=== PATIENT | male | born 1965 | race Caucasian/White ===

== ENCOUNTER 2018-06-01 09:41 | Emergency (ER) | payer BC ==
[2018-06-01 10:25] VITALS: BP 121/78
--- NOTE | 2018-06-01 12:10 | RAD ---
Indication: Left knee pain. 4 views of left knee demonstrates no evidence of fracture. Joint space narrowing in the medial compartment is noted. No significant joint effusion is noted. IMPRESSION: Joint space narrowing medial compartment left knee.
--- NOTE | 2018-06-01 12:14 | UC ---
Knee Pain HPI - HPI Summary HPI Summary: Pt c/o intermittent left knee pain X 4 weeks ago. Pt denies injury, trauma or previous surgery. - History of Current Complaint Chief Complaint: UCLowerExtremity Stated Complaint: LT KNEE COMP Time Seen by Provider: 06/01/18 11:36 Hx Obtained From: Patient Onset/Duration: Gradual Onset, Lasting Weeks - 4 weeks, Still Present Severity Initially: Moderate Severity Currently: Mild Pain Intensity: 5 Character: Sharp, Dull, Aching Aggravating Factor(s): Movement Alleviating Factor(s): Rest, Position Associated Signs And Symptoms: Positive: Negative Able to Bear Weight: Yes - Risk Factors Septic Arthritis Risk Factor: Negative Gout Risk Factor: Male - Allergies/Home Medications Allergies/Adverse Reactions: Allergies Allergy/AdvReac Type Severity Reaction Status Date / Time No Known Allergies Allergy Verified 01/13/15 17:24 Home Medications: Home Medications NK [No Home Medications Reported] 06/01/18 [History Confirmed 06/01/18] PMH/Surg Hx/FS Hx/Imm Hx Previously Healthy: Yes - Surgical History Surgical History: Yes Surgery Procedure, Year, and Place: jaw surgery. LEFT KNEE CYST REMOVAL - Family History Known Family History: Positive: Cardiac Disease - Social History Occupation: Employed Full-time Lives: With Family Alcohol Use: Daily Alcohol Amount: 2-3 beers nightly Substance Use Type: None Smoking Status (MU): Heavy Every Day Tobacco Smoker Type: Cigars Amount Used/How Often: 1/2 pack daily Have You Smoked in the Last Year: Yes Review of Systems Constitutional: Negative Skin: Negative Eyes: Negative ENT: Negative Respiratory: Negative Cardiovascular: Negative Gastrointestinal: Negative Genitourinary: Negative Motor: Negative Musculoskeletal: Arthralgia - left knee, Myalgia - left knee Neurological: Negative Psychological: Negative Is Patient Immunocompromised?: No All Other Systems Reviewed And Are Negative: Yes Physical Exam Triage Information Reviewed: Yes Appearance: Well-Appearing Vital Signs: Initial Vital Signs Temp 98.4 F 06/01/18 10:17 Pulse 58 06/01/18 10:17 Resp 17 06/01/18 10:17 BP 121/78 06/01/18 10:17 Pulse Ox 97 06/01/18 10:17 Vital Signs Reviewed: Yes Eye Exam: Normal ENT Exam: Normal Dental Exam: Normal Neck exam: Normal Respiratory: Positive: No respiratory distress Musculoskeletal Exam: Other - c/o intermittent pain Musculoskeletal: Positive: Other: - surgical scar left medial knee from previous cyst removal over 20 years ago. Neurological Exam: Normal Psychological Exam: Normal Skin Exam: Other - surgical scar, left medial knee Diagnostics - Radiology No standard instances Radiology Interpretation Completed By: Radiologist - IMPRESSION: Joint space narrowing medial compartment left knee. Knee Pain Course/Dx - Differential Dx/Diagnosis Differential Diagnosis/HQI/PQRI: Tendonitis Provider Diagnoses: left knee pain Discharge - Sign-Out/Discharge Documenting (check all that apply): Patient Departure - Discharge Plan Condition: Stable Disposition: HOME Patient Education Materials: Knee Pain (ED) Referrals: Vikram Hobbs MD [Medical Doctor] - As Soon As Possible No Primary Care Phys,NOPCP [Primary Care Provider] - - Billing Disposition and Condition Condition: STABLE Disposition: Home
== END 2018-06-01 12:48 | disposition home or self-care (01) ==
LOC: UCCORT 09:41
DX: M25.562 Pain in left knee (principal); F17.210 Nicotine dependence, cigarettes, uncomplicated
CPT/HCPCS: 99201; G0463

== ENCOUNTER 2018-12-05 08:42 | Observation (INO) | payer BC ==
--- NOTE | 2018-11-27 12:21 | HP ---
HISTORY AND PHYSICAL: DATE OF ADMISSION/SURGERY: 12/05/18 DATE OF OFFICE VISIT: 11/26/18 SURGEON: Yessica Sue MD * (DICTATED BY MIRYAM CASTANO) PROCEDURE: Left total knee arthroplasty. CHIEF COMPLAINT: Left knee pain. HISTORY OF PRESENT ILLNESS: Mr. Finnegan is a 53-year-old gentleman with end- stage osteoarthritis of the left knee. He has failed conservative treatment and elected to proceed with a left total knee arthroplasty. PAST MEDICAL HISTORY: Denies. PAST SURGICAL HISTORY: Jaw surgery and a cyst removal from his left knee. CURRENT MEDICATIONS: Tylenol as needed. ALLERGIES: No known drug allergies. FAMILY HISTORY: [place] chorea. SOCIAL HISTORY: He is a 53-year-old gentleman, lives with his . He smokes a pack a day, denies use of drugs and drinks approximately 6 beers per night. REVIEW OF SYSTEMS: A complete 14-point review of systems was reviewed with the patient. It was all negative or noncontributory. He denies history of DVT, PE , hepatitis, HIV, or anesthesia problems. PHYSICAL EXAMINATION GENERAL: He is well developed, well nourished, in no acute distress. VITAL SIGNS: He stands 65 inches tall, weighs 155 pounds. His blood pressure is 120/81 and his heart rate is 72. HEENT: Normocephalic, atraumatic. NECK: Supple. No palpable lymph nodes. PULMONARY: The lungs are clear to auscultation bilaterally. CARDIO: Regular rate and rhythm. Strong S1, S2. ABDOMEN: Soft, nontender, nondistended. NEUROLOGICAL: He is alert and oriented x3. MUSCULOSKELETAL: Left lower extremity: The skin is intact. There are no open wounds or abrasions. He has a moderate effusion of the left knee, some tenderness along the medial joint line. There is a varus deformity of the knee with 10 to 120 degrees of flexion. He has a 2+ dorsalis pedis pulse, intact sensation in his lower extremity, muscle group strengths are intact at 5/5. ASSESSMENT AND PLAN: Mr. Finnegan is a 53-year-old gentleman with end-stage osteoarthritis of the left knee. He has failed conservative treatment and elected to proceed with a left total knee arthroplasty. The surgery is scheduled for 12/05/[address] Sue discussed the risks and benefits of the surgery at today's visit and all of his questions were answered. He will follow up with Dr. Sue 2 weeks after the surgery. MIRYAM CASTANO [id number]/[facility] #: [id number] JENARO
[~2018-12-05 08:42] MED LIST: Buffered Lidocaine 1% SYRIN* 1 ML/SYRINGE INTRADERM ONE; Dexamethasone IV* 4 MG/ML 1 ML (4 MG) IV SLOW PU ONE; Dexamethasone IV* 4 MG/ML 1 ML (4 MG) ONE; Famotidine IV* 10 MG/ML 2 ML (20 mg) IV ONE; Famotidine IV* 10 MG/ML 2 ML (20 mg) ONE; Gabapentin CAP(*) 100 MG ONE; Gabapentin CAP(*) 300 MG ONE; Gabapentin CAP(*) 300 MG PO ONE; Lactated Ringers 1000 ML Bag* 1,000 ML IV SCH; Lidocaine 2% PF * 5 ML VIAL ONE; Midazolam* 1 MG/ML 2 ML VIAL (2 MG) ONE; ROPIVACAINE 5 MG/ML 30 ML BTL (0.5%) ONE; Tranexamic Acid 1,000 MG in NS 0.9% 50 ML IV ONE; ceFAZolin 2 GM PREMIX in ORs 2 GM/50 ML BAG IVPB ONE; celeCOXIB CAP* 200 MG PO ONE; fentaNYL* 50 MCG/ML 2 ML VIAL (100 MCG VIAL) ONE
[2018-12-05] MEDS ORDERED: celeCOXIB CAP* 100 MG ONE (08:47)
[2018-12-05] MEDS ORDERED: Bupivacaine 0.5%* 50 ML VIAL ONE (08:54)
[2018-12-05] MEDS ORDERED: Propofol* 10 MG/ML 20 ML BTL ONE (09:33)
[2018-12-05] MEDS ORDERED: Ketorolac INJ* 30 MG/ML 1 ML VIAL ONE (10:17)
[2018-12-05] MEDS ORDERED: Ondansetron INJ* 2 MG/ML VIAL ONE (10:17)
[2018-12-05] MEDS ORDERED: HYDROmorphone INJ1* 1 MG/ML SYRINGE ONE (10:19)
[2018-12-05] MEDS ORDERED: DiMENhydriNATE IV* 50 MG/ML VIAL IV PUSH PRN (10:23)
[2018-12-05] MEDS ORDERED: HYDROmorphone INJ1* 1 MG/ML SYRINGE IV PRN (10:23)
[2018-12-05] MEDS ORDERED: Naloxone* 0.4 MG/ML 1 ML VIAL IV PRN (10:23)
[2018-12-05] MEDS ORDERED: fentaNYL* 50 MCG/ML 2 ML VIAL (100 MCG VIAL) IV PRN (10:23)
[2018-12-05] MEDS ORDERED: fentaNYL* 50 MCG/ML 2 ML VIAL (100 MCG VIAL) ONE ×2 (11:47→12:35)
[2018-12-05] MEDS ORDERED: Bisacodyl SUPP* 10 MG SUPP PR PRN (11:52)
[2018-12-05] MEDS ORDERED: Ondansetron INJ* 2 MG/ML VIAL IV PRN (11:52)
[2018-12-05] MEDS ORDERED: Polyethylene Glycol 3350* 17 GM PACKET PO PRN (11:52)
[2018-12-05] MEDS ORDERED: Cyclobenzaprine TAB* 10 MG PO PRN (11:52)
[2018-12-05] MEDS ORDERED: Magnesium Hydroxide LIQ* 30 ML UDC PO PRN (11:52)
[2018-12-05] MEDS ORDERED: Ondansetron TAB* 4 MG PO PRN (11:52)
[2018-12-05] MEDS ORDERED: diPHENhydraMINE IV* 50 MG/ML 1 ml VIAL (BENADRYL) IV PRN (11:52)
[2018-12-05] MEDS ORDERED: Acetaminophen TAB* 325 MG PO SCH (12:00)
[2018-12-05] MEDS ORDERED: oxyCODONE/Acetamin 5/325 MG* TAB ONE (12:35)
[2018-12-05] MEDS: oxyCODONE/Acetamin 5/325 MG* TAB PO PRN ×3 (12:37→22:44)
[2018-12-05] MEDS: Lactated Ringers 1000 ML Bag* 1,000 ML IV SCH (13:58)
[2018-12-05] MEDS ORDERED: Mouth Piece, Nicotine* 1 EACH CARTRIDGE INH PRN (14:38)
[2018-12-05] MEDS: Acetaminophen TAB* 325 MG PO SCH ×2 (14:55→22:48)
[2018-12-05] MEDS: traMADol TAB* 50 MG PO PRN (15:13)
[2018-12-05] MEDS: Nicotine Inhaler* 10 MG AMP INH PRN ×2 (15:13→17:13)
[2018-12-05] MEDS: ceFAZolin 1 GM ADVAN(*) 1 GM in NS 0.9% 50 ML* 50 ML IVPB SCH (19:00)
--- NOTE | 2018-12-05 20:14 | OP ---
DATE OF OPERATION: 12/05/18 - ROOM #332 DATE OF : 65 SURGEON: Yessica Sue MD. CONTINUOUS IMPROVEMENT BLACK BELT: MIRYAM Morris. Ms. Crum did help throughout the procedure with preparation of the leg, wound retraction, manipulation of the knee, and wound closure. ANESTHESIOLOGIST: Dr. Garcia. ANESTHESIA: Spinal. PRE-OP DIAGNOSIS: Severe end-stage degenerative osteoarthritis of the left knee joint. POST-OP DIAGNOSIS: Severe end-stage degenerative osteoarthritis of the left knee joint. OPERATIVE PROCEDURE: Left total knee arthroplasty. COMPLICATIONS: None. SPECIMENS: Bone and cartilage from the left knee joint sent to Pathology. ESTIMATED BLOOD LOSS: 150 cc. TOURNIQUET TIME: 49 minutes. HARDWARE USED: This is a cemented Menendez [employer] Nephew total knee arthroplasty hardware. Two packages of Simplex bone cement were used. For the femur, a left size 7 posterior stabilized Oxinium Legion femoral component. For the tibia, a size 5 left tibial baseplate Cherry II. For the insert, a 9 mm posterior stabilized articular insert size 5/6 and for the patella, a 32 mm 3- peg all poly patella with 7.5 thickness. BRIEF HISTORY/INDICATIONS: Mr. Finnegan is a 53-year-old gentleman with years of increasingly severe left knee pain. He failed conservative treatment with anti- inflammatories, pain medications, intraarticular injections, and physical therapy. Due to continued pain and decreased quality of life, he elected to undergo a left total knee arthroplasty. Radiographs showed advanced arthritis. Informed consent was obtained from the patient. He understood the risks of the surgery included but were not limited to bleeding, infection, damage to nearby structures, continued pain, need for further surgery, intraoperative fracture, nerve palsy, hardware failure or loosening, knee stiffness, loss of motion, stroke, heart attack, blood clot, and . He wished to proceed. INTRAOPERATIVE FINDINGS: Intraoperatively, the patient was noted to have full- thickness loss of cartilage in all 3 compartments. He was noted to have significant varus deformity at the knee joint. DESCRIPTION OF PROCEDURE: Mr. Finnegan was identified in the preanesthesia unit. His left lower extremity was marked as the correct operative site. Informed consent was signed and placed in the chart. The patient was taken to the operating room and placed under spinal anesthesia. A Funk catheter was placed. Tourniquet was placed on the left thigh. Left lower extremity was prepped and draped in the usual sterile fashion. Preop time-out was made to correctly identify the patient's side and site. Appropriate perioperative antibiotics were given within 1 hour of incision. Tourniquet was inflated and total tourniquet time for this procedure was 49 minutes. A midline incision was made with a 10 blade and carried down to the extensor mechanism. New 10 blade was used to make a standard medial parapatellar arthrotomy. Patella was subluxed laterally. Electrocautery was used to subperiosteally elevate soft tissue off the supero-medial tibia to the midsagittal plane. The knee was flexed up. The anterior horn of the lateral meniscus and the ACL were sharply released. A drill was used to enter the distal femur. Intramedullary distal femoral cutting guide was pinned on the distal femur. Oscillating saw was used to make the distal femoral cut. Next, the external rotation guide was pinned on the distal femur. Distal femur was sized to a size 7. Size 7 multi-cutting jig was pinned on the distal femur. Oscillating saw was used to make the appropriate 4 chamfer cuts. Next, the PCL was completely released. The tibia was subluxed anteriorly. Extramedullary tibial cutting guide was pinned on the proximal tibia. Oscillating saw was used to make the proximal tibial cut perpendicular to the mechanical axis of the tibia. The bone was carefully removed. The knee was brought out into full extension. The spacer block had good fit with the knee in full extension. Medial and lateral ligaments were well balanced. Flexion and extension gaps were well balanced. The knee was flexed up. Lamina cell phone repair technician was placed both medially and laterally and the remaining meniscus was carefully removed using electrocautery. Curved osteotome was used to remove any posterior osteophytes. Tibial tray and drop brianna were placed and confirmed a satisfactory tibial cut. A left size 7 femoral trial was impacted on to the distal femur and had good fit and stability. The box for the posterior stabilized implant was prepared using a reamer and box cut osteotome. Size 5 tibial tray with a 9 mm insert trial was placed and the knee was taken through a range of motion. The knee had full extension to 130 degrees of flexion. There was satisfactory patellofemoral tracking. The patella was everted, 8 mm of patellar bone and cartilage was carefully removed using an oscillating saw. Patella was sized to a size 32. Three peg holes were drilled using the size 32 guide. The 32 trial patella with 7.5 thickness was placed and the knee was taken through a range of motion. There was satisfactory patellofemoral tracking. All trials were carefully removed. The tibia was subluxed anteriorly and sized to a size 5. Proximal tibia was prepared using a size 5 keel punch. All bony cut surfaces were copiously irrigated with sterile saline and dried. Final implants were cemented into place starting with the tibia, followed by the femur , and last the patella. A 9 mm insert trial was placed and the knee was brought out into full extension. Tourniquet was turned down at 49 minutes. The knee was copiously irrigated with sterile saline. Electrocautery was used to obtain meticulous hemostasis. Once the cement had fully cured, the insert trial was removed. Any extra cement was removed from around the capsule and hardware. Final insert chosen was a 9 mm posterior stabilized articular insert size 5/6. This was locked into position on the tibial tray. Stability of the insert was checked and rechecked and noted to be stable. The extensor mechanism was closed using interrupted #1 Vicryls. The rest of the incision was closed in a layered fashion using 0 and 2-0 Vicryls. Skin was closed using running 3-0 nylon suture. Sterile Xeroform, 4x4s, and Webril were used to cover the incision. Leon wrap and cold pack were placed over this. The patient 's anesthesia was reversed without difficulty. He was taken to the PACU in stable condition. Intended weightbearing will be weightbearing as tolerated. Intended DVT prophylaxis will be Coumadin with Lovenox bridge. [id number]/[facility] #: [id number] JENARO
[2018-12-05] MEDS: Magnesium Hydroxide LIQ* 30 ML UDC PO SCH (21:33)
[2018-12-05] MEDS: Docusate CAP* 100 MG PO SCH (21:33)
[2018-12-06] MEDS: Lactated Ringers 1000 ML Bag* 1,000 ML IV SCH (00:24)
[2018-12-06] MEDS: ceFAZolin 1 GM ADVAN(*) 1 GM in NS 0.9% 50 ML* 50 ML IVPB SCH ×2 (01:37→10:03)
[2018-12-06] MEDS: oxyCODONE/Acetamin 5/325 MG* TAB PO PRN ×4 (06:03→19:50)
[2018-12-06] MEDS: Acetaminophen TAB* 325 MG PO SCH ×3 (06:22→22:10)
[2018-12-06 07:03] LABS: Hematocrit 39 % (42-52); Hemoglobin 13.4 g/dl (14.0-18.0); Mean Platelet Volume 8.7 fL (7.4-10.4); Platelet Count 174 10^3/ul (150-450)
[2018-12-06 07:18] LABS: BUN/Creatinine Ratio 13.8 (8-20); Calcium 8.9 mg/dL (8.6-10.3); EGFR Non-African American 91.8 (>60)
[2018-12-06] MEDS: Nicotine Inhaler* 10 MG AMP INH PRN ×2 (07:21→15:57)
[2018-12-06] MEDS: traMADol TAB* 50 MG PO PRN ×2 (07:23→14:17)
[2018-12-06] MEDS: Magnesium Hydroxide LIQ* 30 ML UDC PO SCH ×2 (08:12→19:51)
[2018-12-06] MEDS: oxyCODONE TAB* 5 MG TAB PO PRN ×4 (08:12→21:55)
[2018-12-06] MEDS: Docusate CAP* 100 MG PO SCH ×2 (08:12→19:51)
[2018-12-06] MEDS: Apixaban* 2.5 MG TAB PO SCH ×2 (08:13→19:51)
[2018-12-06] MEDS: Morphine VIAL* 4 MG/ML VIAL (1 ml vial) IV PRN ×2 (08:38→15:10)
--- NOTE | 2018-12-06 15:25 | PN ---
Progress Note - Progress Note Date of Service: 12/06/18 SOAP: Subjective: []Patient was seen and examined at bedside. He feels well aside from operative site pain which he has required IV morphine to control. Denies CP, SOB, dizziness, nausea Objective: []General: Well appearing, NAD LLE: Dressing CDI, cryo unit in use, thigh is soft, DF/PF intact, DP2+, sensation intact to light touch distally Calves supple and nontender without erythema, edema or palpable cords Assessment: []POD 1 sp left total knee arthroplasty 12/05 Dr Sue Plan: []WBAT PT/OT lovenox bridge to coumadin, coumadin 8 mg today Anticipate DC in the morning to home, anticipate [place] [facility] [place] Vital Signs Temp 98.5 F 12/06/18 11:15 Pulse 52 12/06/18 11:15 Resp 18 12/06/18 15:16 BP 130/75 12/06/18 11:15 Pulse Ox 96 12/06/18 11:15 Intake & Output 12/05/18 12/06/18 12/06/18 18:59 06:59 18:59 Intake Total 1000 2190 1049 Output Total 4850 600 Balance 1000 -2660 449 Weight 154 lb 6.299 oz Intake: IV Fluids 1000 990 574 LR 1000 990 574 IVPB 50 55 ABX - CEFAZOLIN 50 55 Oral 1150 420 Output: Urine 600 Funk 4850 Other: Estimated Void Large # Bowel Movements 0 # Voids 1 Laboratory Last Values Hgb 13.4 g/dl (14.0-18.0) L 12/06/18 06:49 Hct 39 % (42-52) L 12/06/18 06:49 Plt Count 174 10^3/ul (150-450) 12/06/18 06:49 MPV 8.7 fL (7.4-10.4) 12/06/18 06:49 Sodium 137 mmol/L (135-145) 12/06/18 06:49 Potassium 4.0 mmol/L (3.5-5.0) 12/06/18 06:49 Chloride 106 mmol/L (101-111) 12/06/18 06:49 Carbon Dioxide 26 mmol/L (22-32) 12/06/18 06:49 Anion Gap 5 mmol/L (2-11) 12/06/18 06:49 BUN 12 mg/dL (6-24) 12/06/18 06:49 Creatinine 0.87 mg/dL (0.67-1.17) 12/06/18 06:49 Est GFR ( Amer) 111.1 (>60) 12/06/18 06:49 Est GFR (Non-Af Amer) 91.8 (>60) 12/06/18 06:49 BUN/Creatinine Ratio 13.8 (8-20) 12/06/18 06:49 Glucose 154 mg/dL (70-100) H 12/06/18 06:49 Calcium 8.9 mg/dL (8.6-10.3) 12/06/18 06:49
[2018-12-07] MEDS: oxyCODONE/Acetamin 5/325 MG* TAB PO PRN ×4 (00:02→12:22)
[2018-12-07] MEDS: oxyCODONE TAB* 5 MG TAB PO PRN ×2 (02:05→06:02)
[2018-12-07] MEDS: Acetaminophen TAB* 325 MG PO SCH (06:07)
[2018-12-07 06:11] LABS: Hematocrit 41 % (42-52); Hemoglobin 13.9 g/dl (14.0-18.0); Mean Platelet Volume 8.4 fL (7.4-10.4); Platelet Count 187 10^3/ul (150-450)
[2018-12-07] MEDS: Docusate CAP* 100 MG PO SCH (07:57)
[2018-12-07] MEDS: Apixaban* 2.5 MG TAB PO SCH (07:57)
[2018-12-07] MEDS: Magnesium Hydroxide LIQ* 30 ML UDC PO SCH (07:57)
[2018-12-07] MEDS: Nicotine Inhaler* 10 MG AMP INH PRN (09:26)
[2018-12-07] MEDS: traMADol TAB* 50 MG PO PRN (10:16)
--- NOTE | 2018-12-07 10:56 | PN ---
Progress Note - Progress Note Date of Service: 12/07/18 SOAP: Subjective: []Patient seen at bedside this am. Doing better, pain better managed with Percocet. Feels he will be able to go home this afternoon. Denies SOB, CP, palpitations,dizziness. Objective: [] Vital Signs Temp 98.4 F 12/07/18 08:07 Pulse 77 12/07/18 08:07 Resp 20 12/07/18 10:16 BP 130/81 12/07/18 08:07 Pulse Ox 94 12/07/18 08:07 Intake & Output 12/06/18 12/07/18 12/07/18 18:59 06:59 18:59 Intake Total 1399 850 100 Output Total 1775 2175 550 Balance -376 -1325 -450 Intake: IV Fluids 574 LR 574 IVPB 55 ABX - CEFAZOLIN 55 Oral 770 850 100 Output: Urine 1775 2175 550 Other: Estimated Void Large # Bowel Movements 0 # Voids 1 Laboratory Results - last 24 hr 12/07/18 05:57 Hgb 13.9 L Hct 41 L Plt Count 187 MPV 8.4 Left knee dressings changed- incision benign calf NT and soft +DF/PF left ankle sensation and circulation intact distally Assessment: []s/p LTK POD #2 Plan: []PT/ OT today WBAT LLE Eliquis for 1 month post op for DVT prophylaxis Percocet for pain f/u 10-14 days as scheduled with Dr. Sue
[2018-12-07 13:08] VITALS: BP 139/87
--- NOTE | 2018-12-07 21:17 | DS ---
DISCHARGE SUMMARY: DATE OF ADMISSION: 12/05/18 DATE OF DISCHARGE: 12/07/18 ATTENDING PHYSICIAN: Dr. Yessica Sue.* (DICTATED BY MIRYAM MCLEAN) ADMISSION DIAGNOSIS: Severe end-stage degenerative osteoarthritis of the left knee joint. DISCHARGE DIAGNOSIS: Severe end-stage degenerative osteoarthritis of the left knee joint. SURGERY PERFORMED: Left total knee arthroplasty. HOSPITAL COURSE: The patient is a 53-year-old male with years of increasingly severe left knee pain. He failed conservative management with anti- inflammatories, pain medications, intra-articular corticosteroid injections and physical therapy. Due to continued pain and decreased quality of life, he elected to proceed with left total knee arthroplasty. He was taken to the operating room under the care of Dr. Yessica Sue on the date of 12/05/18. He tolerated the procedure well and left the operating room in stable condition. Postoperatively, he progressed well with physical therapy and occupational therapy, bearing weight as tolerated on the left lower extremity. He had no medical or orthopedic postoperative complications and was found to be stable for discharge to home on the date of 12/07/18. CONDITION ON DISCHARGE: Temperature is 98.4, pulse 77, respiratory rate 16, O2 sat is 94% on room air, blood pressure 130/81. His left knee incision was healing without evidence of infection. There is no drainage. His calf is soft and nontender. His neurovascular status is intact with active dorsiflexion of the left ankle. PLAN: Discharge to home, bearing weight as tolerated on the left lower extremity. He was provided with a prescription of Percocet 5/325, 1 to 2 tablets q.4 hours p.r.n. pain, #56, MDD 8; Eliquis 2.5 mg p.o. b.i.d. for 1 month postoperatively for DVT prophylaxis. Both medications were sent to [facility] for pickup prior to discharge today. He will follow up in the office as scheduled with Dr. Sue in roughly 10 to 14 days. MIRYAM MCLEAN [id number]/[facility] #: [id number] [facility]
== END 2018-12-07 14:08 | disposition home or self-care (01) ==
LOC: OR 08:42 → SSU 14:07 → INTOOBSV 14:07
PROVIDERS: ADMIT Orthopaedic Surgery Adult Reconstructive Orthopaedic Surgery; ATTEND Orthopaedic Surgery Adult Reconstructive Orthopaedic Surgery
DX: M17.12 Unilateral primary osteoarthritis, left knee (principal)
CPT/HCPCS: 36415; 80048; 85014; 85018; 85049; 96374; 96375; 96376; A9270-GY; G0378; J0690; J1100; J1170; J1885; J2250; J2270; J2405; J2704; J2795; J3010

== ENCOUNTER 2019-05-21 08:17 | Emergency (ER) | payer BC ==
[2019-05-21 09:30] VITALS: BP 118/78
--- NOTE | 2019-05-21 10:34 | UC ---
Upper Extremity HPI - HPI Summary HPI Summary: left arm weakness x 2 months no known injury , getting worse noted that he is having a hard time with lift things with his left arm , does have left arm pain with certain movements denies any neck pain , no numbness of his arm , - History of Current Complaint Chief Complaint: UCUpperExtremity Stated Complaint: LT SIDE PAIN Time Seen by Provider: 05/21/19 08:35 Hx Obtained From: Patient Onset/Duration: Gradual Onset, Lasting Weeks - 8, Still Present Severity Initially: Mild Severity Currently: Moderate Pain Intensity: 0 Pain Scale Used: 0-10 Numeric Location Of Pain: Is Discrete @ - left arm Aggravating Factor(s): Movement, Lifting, Flexion Alleviating Factor(s): Nothing Associated Signs And Symptoms: Positive: Weakness. Negative: Swelling, Redness , Bruising, Fever, Numbness/Tingling - Allergies/Home Medications Allergies/Adverse Reactions: Allergies Allergy/AdvReac Type Severity Reaction Status Date / Time No Known Allergies Allergy Verified 05/21/19 09:25 PMH/Surg Hx/FS Hx/Imm Hx - Surgical History Surgical History: Yes Surgery Procedure, Year, and Place: jaw surgery- HARDWARE REMOVED. LEFT KNEE CYST REMOVAL - Family History Known Family History: Positive: Cardiac Disease - Social History Alcohol Use: Daily Alcohol Amount: 4-5 beers nightly Substance Use Type: None Smoking Status (MU): Heavy Every Day Tobacco Smoker Type: Cigars Amount Used/How Often: 1 PPD Have You Smoked in the Last Year: Yes - Immunization History Most Recent Influenza Vaccination: never Most Recent Pneumonia Vaccination: never Review of Systems All Other Systems Reviewed And Are Negative: Yes Constitutional: Positive: Negative Skin: Positive: Negative Eyes: Positive: Negative ENT: Positive: Negative Is Patient Immunocompromised?: No Physical Exam Triage Information Reviewed: Yes Appearance: Well-Appearing, No Pain Distress, Well-Nourished Vital Signs: Initial Vital Signs Temp 97.9 F 05/21/19 09:26 Pulse 65 05/21/19 09:26 Resp 15 05/21/19 09:26 BP 118/78 05/21/19 09:26 Pulse Ox 98 05/21/19 09:26 Vital Signs Reviewed: Yes Eye Exam: Normal Eyes: Positive: Conjunctiva Clear ENT: Positive: Normal ENT inspection, Hearing grossly normal, Pharynx normal Neck exam: Normal Neck: Positive: Supple, Nontender, No Lymphadenopathy Respiratory: Positive: Chest non-tender, Lungs clear, Normal breath sounds Cardiovascular: Positive: RRR, No Murmur, Pulses Normal Musculoskeletal: Positive: Other: - left arm : left biceps atrophy , no swelling or tenderness, limited ROM on left arm flexion and shoulder flexion , internal rotation , abduction limited strength on flexion , internal rotation , abduction Upper Extremity Course/Dx - Differential Dx/Diagnosis Provider Diagnosis: Muscle left arm weakness Discharge - Sign-Out/Discharge Documenting (check all that apply): Patient Departure All imaging exams completed and their final reports reviewed: No Studies - Discharge Plan Condition: Stable Disposition: HOME Patient Education Materials: Weakness (ED) Referrals: Melisa Gutierrez MD [Primary Care Provider] - Vikram Hobbs MD [Medical Doctor] - As Soon As Possible Additional Instructions: left arm weakness flexor muscle weakness of left arm , with bicep atrophy also left shoulder weakness pinch nerve to your left arm or rotator cuff injury referral to ortho for evaluation and tx - Billing Disposition and Condition Condition: STABLE Disposition: Home
== END 2019-05-21 09:50 | disposition home or self-care (01) ==
LOC: UCCORT 08:17
DX: M62.81 Muscle weakness (generalized) (principal); F17.210 Nicotine dependence, cigarettes, uncomplicated
CPT/HCPCS: 99211; G0463

== ENCOUNTER 2019-09-14 07:08 | Emergency (ER) | payer BC ==
[2019-09-14 07:19] VITALS: BP 119/78
--- NOTE | 2019-09-14 07:47 | UC ---
Skin Complaint HPI - HPI Summary HPI Summary: 53 yo, removed a nymph tick from his right upper calf this morning. Uncertain time of attachment. No hx of Lyme disease. - History of Current Complaint Chief Complaint: [facility]kin Time Seen by Provider: 09/14/19 07:37 Stated Complaint: RIGHT CALF SKIN - TICK Hx Obtained From: Patient Onset/Duration: Sudden Onset, Lasting Days - 1-2 Skin Exposure Onset/Duration: Days Ago - 1-2 Onset Severity: Mild Current Severity: None Pain Intensity: 0 Aggravating Factor(s): Nothing Alleviating Factor(s): Nothing Associated Signs & Symptoms: Positive: Negative - Allergy/Home Medications Allergies/Adverse Reactions: Allergies Allergy/AdvReac Type Severity Reaction Status Date / Time No Known Allergies Allergy Verified 09/14/19 07:19 PMH/Surg Hx/FS Hx/Imm Hx Previously Healthy: Yes - Surgical History Surgical History: Yes Surgery Procedure, Year, and Place: jaw surgery- HARDWARE REMOVED. LEFT KNEE CYST REMOVAL. Lt KNEE - TOTAL REPLACEMENT 11/2018 - Family History Known Family History: Positive: Cardiac Disease - Social History Occupation: Employed Full-time Alcohol Use: Daily Alcohol Amount: 4-5 beers nightly Substance Use Type: None Smoking Status (MU): Light Every Day Tobacco Smoker Type: Cigars Amount Used/How Often: 1 PPD Have You Smoked in the Last Year: Yes - Immunization History Most Recent Influenza Vaccination: never Most Recent Pneumonia Vaccination: never Review of Systems All Other Systems Reviewed And Are Negative: Yes Constitutional: Positive: Negative Skin: Positive: Negative Eyes: Positive: Negative ENT: Positive: Negative Respiratory: Positive: Negative Cardiovascular: Positive: Negative Gastrointestinal: Positive: Negative Genitourinary: Positive: Negative Is Patient Immunocompromised?: No Physical Exam Triage Information Reviewed: Yes Appearance: Well-Appearing Vital Signs: Initial Vital Signs Temp 97.5 F 09/14/19 07:14 Pulse 66 09/14/19 07:14 Resp 16 09/14/19 07:14 BP 119/78 09/14/19 07:14 Pulse Ox 100 09/14/19 07:14 Respiratory: Positive: Lungs clear, Normal breath sounds Cardiovascular: Positive: RRR, No Murmur Skin Exam: Other - right medial thigh with tick bite, removed one small mouthpiece with splinter forceps, one small bit remains. Course/Dx - Course Course Of Treatment: removed one small mouthpiece. Discussed and opts for single dose doxycycline. - Differential Diagnoses - Skin Complaint Differential Diagnoses: Tick Born Illness - Diagnoses Provider Diagnosis: Tick bite Discharge ED - Sign-Out/Discharge Documenting (check all that apply): Patient Departure All imaging exams completed and their final reports reviewed: No Studies - Discharge Plan Condition: Stable Disposition: HOME Prescriptions: Doxycycline Hyclate 200 mg PO ONCE #1 tablet. Patient Education Materials: Tick Bite (ED) Referrals: Melisa Gutierrez MD [Primary Care Provider] - Additional Instructions: Compress the area of bite and the remaining mouthpiece will come out. Take single 200mg dose of doxycycline to prevent Lyme disease. This is 80% effective in preventing Lyme disease IF the tick was infected with the Lyme bacteria. Follow up if you develop rash or fever. - Billing Disposition and Condition Condition: STABLE Disposition: Home
== END 2019-09-14 07:59 | disposition home or self-care (01) ==
LOC: UCCORT 07:08
DX: S80.861A Insect bite (nonvenomous), right lower leg, initial encounter (principal); F17.210 Nicotine dependence, cigarettes, uncomplicated; W57.XXXA Bitten or stung by nonvenomous insect and other nonvenomous arthropods, initial encounter; Y92.9 Unspecified place or not applicable
CPT/HCPCS: 99212; G0463